=== PATIENT | female | born 1995 | race African-American/Black ===

== ENCOUNTER 2016-09-02 12:07 | Emergency (ER) | payer OTHER ==
[~2016-09-02] VITALS: Ht 160 cm; Wt 63.0 kg
[~2016-09-02 12:07] MED LIST: PENI500T PO; RANI150T6 PO; TRAM-29 PO
[2016-09-02 13:15] VITALS: BP 121/72
[2016-09-03 09:06] LABS: NEGATIVE OBC STREP NEG; POSITIVE OBC STREP POS
== END 2016-09-02 13:51 | disposition left against medical advice (07) ==
LOC: ER 12:11
DX: J02.9 Acute pharyngitis, unspecified (principal); R51 Headache; Z91.013 Allergy to seafood; Z53.21 Procedure and treatment not carried out due to patient leaving prior to being seen by health care provider
CPT/HCPCS: 87070; 87880; 99281; 99283

== ENCOUNTER 2020-02-29 22:36 | Emergency (ER) | payer SELFPAY ==
[~2020-02-29] VITALS: Ht 160 cm; Wt 75.0 kg
[~2020-02-29 22:36] MED LIST changes: +RANI-376 PO; -RANI150T6 PO; -TRAM-29 PO; +TRAM-48 PO
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
[2020-02-29 23:48] LABS: BILIRUBIN,URINE NEGATIVE (NEG); CLARITY,URINE CLEAR; COLOR,URINE YELLOW; NITRITE,URINE NEGATIVE (NEG); PH,URINE 6.5 (<5.0-8.0); PROTEIN,URINE NEGATIVE (NEG-TRACE)
[2020-02-29 23:54] LABS: BASO % 0 % (0-3); EOS % 0 % (0-3); HEMATOCRIT 33.1 % (36.0-47.0); HEMOGLOBIN 10.9 g/dL (12.0-15.5); LYMPH % 23 % (24-48); MEAN CORPUSCULAR HEMOGLOBIN 28 pg (25-35); MEAN CORPUSCULAR HGB CONC 33 g/dL (31-37); MEAN CORPUSCULAR VOLUME 86 fL (79-100); MONO # 0.5 x10^3/uL (0.0-1.1); MONO % 6 % (0-9); NEUT # 6.1 x10^3/uL (1.8-7.7); NEUT % 71 % (31-73); PLATELET COUNT 277 x10^3/uL (140-400); RED BLOOD COUNT 3.87 x10^6/uL (3.50-5.40); RED CELL DISTRIBUTION WIDTH 13.1 % (11.5-14.5); WHITE BLOOD COUNT 8.6 x10^3/uL (4.0-11.0)
[2020-02-29] MEDS ORDERED: ACETAMINOPHEN 500 MG TABLET PO ONE (23:55)
[2020-02-29] MEDS ORDERED: METOCLOPRAMIDE 10 MG TABLET. PO ONE (23:55)
[2020-02-29 23:57] LABS: BACTERIA,URINE MANY /HPF (0-FEW); RBC,URINE OCC /HPF (0-2); SQUAMOUS EPITHELIAL CELL,UR MANY /LPF; TRICHOMONAS,URINE PRESENT
[2020-03-01 00:07] LABS: CALCIUM 9.3 mg/dL (8.5-10.1); CREATININE 0.6 mg/dL (0.6-1.0); GFR 147.4; POTASSIUM 4.3 mmol/L (3.5-5.1)
[2020-03-01 00:12] LABS: ALBUMIN 3.2 g/dL (3.4-5.0); ALBUMIN/GLOBULIN RATIO 0.7 (1.0-1.7); TOTAL BILIRUBIN 0.3 mg/dL (0.2-1.0); TOTAL PROTEIN 8.1 g/dL (6.4-8.2)
[2020-03-01] MEDS ORDERED: NITROFURANTOIN MONOHYD/M-CRYST 100 MG CAPSULE. PO ONE (00:30)
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
[2020-03-01] MEDS ORDERED: NITR100C62 PO (01:04)
[2020-03-01 01:30] VITALS: BP 102/53
== END 2020-03-01 01:30 | disposition home or self-care (01) ==
LOC: ER 22:36
DX: O21.9 Vomiting of pregnancy, unspecified (principal); R82.71 Bacteriuria; Z91.013 Allergy to seafood; Z3A.15 15 weeks gestation of pregnancy
CPT/HCPCS: 36415; 76805; 80053; 81001; 81025; 83690; 85025; 87086; 99284